=== PATIENT | female | born 1975 | race Caucasian/White ===

== ENCOUNTER 2021-06-06 16:37 | Emergency (ER) | payer OTHER ==
[~2021-06-06] VITALS: Ht 172.7 cm; Wt 130.0 kg
[~2021-06-06 16:37] MED LIST: CHOL500045 PO; LEVO112T49 PO; METF500T16 PO; OMEG300C PO; OMEP20TA63 PO
[2021-06-06] MEDS ORDERED: HYDROmorphone 2 MG/ML VIAL ONE (17:05)
[2021-06-06] MEDS ORDERED: HYDROmorphone 2 MG/ML VIAL IVP ONE ×2 (17:15→17:45)
[2021-06-06] MEDS ORDERED: DIPH,PERTUSS(ACELL),TET VAC/PF 0.5 ML SYRINGE. VAX IM ONE (17:15)
[2021-06-06] MEDS ORDERED: BACITRACIN TOPICAL OINT PACKET. TP ONE (17:15)
--- NOTE | 2021-06-06 17:32 | RAD ---
XR EXAM OF ANKLE_LEFT 3V History: Fall, deformity Comparison: None. Technique: 3 views of the left ankle Findings: Osseous mineralization is normal. There is an acute oblique fracture of the distal femoral metaphysis extending to just above the level of the tibiotalar joint with posterior displacement and shortening of the fracture fragment. The ankle mortise is widened to approximately 1.3 cm medially. The talar d ome is intact. Prominent soft tissue swelling about the ankle. Impression: 1. Oblique fracture distal fibular metaphysis and associated syndesmotic injury of the ankle with wi dening of the medial clear space to 1.3 cm. Electronically signed by: Soham Lim MD (06/06/2021 5:29 PM) [id number]
--- NOTE | 2021-06-06 17:39 | PHYS DOC ---
Past Medical History Past Surgical History: , Hysterectomy General Adult EDM: Chief Complaint: ANKLE PROBLEM HPI: HPI: Patient is a 46 year old female presents emergency department reporting approximately an hour prior to arrival stumbled down the last 3 steps at home and experienced a sudden onset of right ankle pain. Patient was brought to the emergency room by EMS with field splint in place. Patient denies any loss of sensation to her left lower extremity. Reports a past medical history of Fifi's hypothyroidism in which she takes levothyroxine for. Patient reports a allergy to Bactrim. Reports last tetanus immunization was greater than 5 years ago. Denies any other physical complaints or physical concerns. Patient states she did not hurt any other part of her body, did not hit her head. Review of Systems: Review of Systems: 14 body systems of review of systems have been reviewed. See HPI for pertinent positives and negative responses, otherwise all other systems are negative, nonpertinent or noncontributory. Constitutional: Negative except as outlined in HPI above. Skin: Negative except as outlined in HPI above. Eyes: Negative except as outlined in HPI above. HENT: Negative except as outlined in HPI above. Respiratory: Negative except as outlined in HPI above. Cardiovascular: Negative except as outlined in HPI above. GI: Negative except as outlined in HPI above. : Negative except as outlined in HPI above. Musculoskeletal: Negative except as outlined in HPI above. Integument: Negative except as outlined in HPI above. Neurologic: Negative except as outlined in HPI above. Endocrine: Negative except as outlined in HPI above. Lymphatic: Negative except as outlined in HPI above. Psychiatric: Negative except as outlined in HPI above. Heart Score: C/O Chest Pain: No Risk Factors: Risk Factors: DM, Current or recent (<one month) smoker, HTN, HLP, family history of CAD, obesity. Risk Scores: Score 0 - 3: 2.5% MACE over next 6 weeks - Discharge Home Score 4 - 6: 20.3% MACE over next 6 weeks - Admit for Clinical Observation Score 7 - 10: 72.7% MACE over next 6 weeks - Early Invasive Strategies Current Medications: Current Medications Medications (Trade) Dose Ordered Sig/Janey Start Time Stop Time Status Last Admin Dose Admin Bacitracin (Bacitracin Zinc Oint Pkt) 1 pkt 1X ONCE 06/06/21 17:15 06/06/21 17:16 DC Diphtheria/ Tetanus/Acell Pertussis (ADACEL TDap SYRINGE) 0.5 ml ONCE ONCE 06/06/21 17:15 06/06/21 17:16 DC Hydromorphone HCl (Dilaudid) 2 mg 1X ONCE 06/06/21 17:45 06/06/21 17:46 Allergies: Allergies: Allergies Coded Allergies Type Severity Reaction Last Updated Verified sulfamethoxazole Allergy Severe 08/17/16 Yes trimethoprim Allergy Severe 08/17/16 Yes Physical Exam: PE: Constitutional: Well developed, well nourished, no acute distress, non-toxic appearance. 46-year-old female in no acute distress, has field splint in place from EMS left lower extremity ankle. HENT: Normocephalic, atraumatic. Eyes: Conjunctiva normal, no discharge. Neck: Normal range of motion, no stridor. Cardiovascular: No cyanosis appreciated, distal cap refill less than 2 seconds. Lungs & Thorax: Patient is in no respiratory distress, no audible adventitious lung sounds appreciated. Abdomen: Nontender, no abnormalities noted. Skin: Warm, dry, no erythema, no rash. Back: No tenderness, no deformities. Extremities: No tenderness, no cyanosis, no clubbing, ROM intact, no edema. Except for left lower extremity, swelling anterior aspect foot, 2+ pedal pulse, distal cap refill less than 2 seconds, satisfactory movement of toes, limited range of motion of the ankle related to splint placement, deformity appreciated, mild ecchymosis/bruising to anterior lateral ankle. No loss of sensation. Abrasions to toes, no active bleeding, no infectious process appreciated. Neurologic: Alert and oriented X 3, normal motor function, normal sensory function, no focal deficits noted. Psychologic: Affect normal, judgement normal, mood normal. Current Patient Data: Vital Signs: Vital Signs Date Time Temp Pulse Resp B/P (MAP) Pulse Ox O2 Delivery O2 Flow Rate FiO2 06/06/21 17:08 18 99 Room Air 06/06/21 16:40 98.2 86 202/90 (99) 98.2 EKG: EKG: [] Radiology/Procedures: Radiology/Procedures: PATIENT: SONIYA BOND ACCOUNT: [id number] : 1975 LOCATION: ER AGE: 46 SEX: F EXAM STATUS: PRE ER ORD. PHYSICIAN: SULEMAN NEGRO APRN REASON: Fall, deformity, pain PROCEDURE: ANKLE LEFT 3V XR EXAM OF ANKLE_LEFT 3V History: Fall, deformity Comparison: None. Technique: 3 views of the left ankle Findings: Osseous mineralization is normal. There is an acute oblique fracture of the distal femoral metaphysis extending to just above the level of the tibiotalar joint with posterior displacement and shortening of the fracture fragment. The ankle mortise is widened to approximately 1.3 cm medially. The talar dome is intact. Prominent soft tissue swelling about the ankle. Impression: 1. Oblique fracture distal fibular metaphysis and associated syndesmotic injury of the ankle with widening of the medial clear space to 1.3 cm. PROCEDURE: CT LOWER EXTREMITY WO LEFT CT of the left lower extremity without contrast and 3-D reconstruction HISTORY: Ankle fracture Axial helical images were obtained from the mid leg through the foot and reconstruction was performed with separate imaging workstation including 3-D bony surface rendering. FINDINGS: There is an oblique fracture through the lateral malleolus at and above the level of the plafond and with mild posterior displacement and distraction and mild lateral displacement. There is lateral subluxation of the talus from the tibia with widening of the medial mortise. There is straightening versus partial tear of the lateral collateral ligaments and the medial collateral ligaments. The extensor tendons appear normal. IMPRESSION: Acute fracture of the lateral malleolus and subluxation with traumatic widening of the medial mortise. End impression PQRS Compliance Statement: One or more of the following individualized dose reduction techniques were utilized for this examination: 1. Automated exposure control 2. Adjustment of the mA and/or kV according to patient size 3. Use of iterative reconstruction technique Electronically signed by: Augustine Vidal III, MD (06/06/2021 6:47 PM) [facility] Course & Med Decision Making: Course & Med Decision Making Pertinent Labs and Imaging studies reviewed. (See chart for details) 46-year-old female, vital signs reviewed, presents to the emergency department concerning left ankle pain and deformity after a stumbled on the last 3 steps prior to arrival to the emergency department. Physical examination concerning for acute fracture, x-ray ordered. X-ray concerning for trimalleolar fracture versus fracture dislocation, discussed patient case with ED attending physician Dr. Martini recommended splinting patient to help reduce subluxation/dislocation, CT imaging with reconstruction of ankle bone for reevaluation prior to calling orthopedic surgery. Procedure note: Indication: Fracture left ankle Dr. Martini with assistance by myself, and ED nursing staff reduction and splinting with short leg posterior splint with ankle stirrup using Sof-Rol, stockinette, OCL, Raul wraps. Patient tolerated well, patient remained neurovascular intact with distal cap refill less than [address] of left ankle concerning for fracture with subluxation, called and discussed patient case and ED work-up along with x-ray and CT reports with configuration management specialist Dr. Benavides who did not recommend any further manipulation of left ankle, recommends patient ice, elevate, use crutches, nonweightbearing, call his office Wednesday for an appointment later this week for surgical repair. Discussed configuration management specialist recommendations with patient, patient gave verbal understanding of home care, crutch use, ice and elevation, splint care, prescription medications, side effects, patient and patient's are amendable to ED discharge planning. Patient's splinted left lower extremity/ankle remains neurovascular intact with cap refill less than 2 seconds at time of discharge. Discussed with the patient all findings and diagnostic testing as well as the need to follow-up with their primary care provider for further evaluation and treatment or return to the ED if any new or worsening symptoms. Strict return precautions were also discussed at length, the patient voiced understanding and agreement with the discharge planning. The patient was nontoxic in appearance, in no apparent distress, and hemodynamically stable at the time of disposition. Dragon Disclaimer: DragBroadClip Disclaimer: This electronic medical record was generated, in whole or in part, using a voice recognition dictation system. Departure Departure Impression: Primary Impression: Ankle fracture, left Qualified Codes: S82.892A - Other fracture of left lower leg, initial encounter for closed fracture Disposition: HOME / SELF CARE / HOMELESS Condition: GOOD Referrals: CAROLINA CODY MD (PCP) SULEMAN BENAVIDES DO Patient Instructions: Ankle Fracture Additional Instructions: You were seen today after a fall, you have fractured your left ankle, a splint was placed, please do not remove the splint, please place ice over the ankle 30 minutes on and 30 minutes off while awake. These elevate above the level of your heart to help prevent swelling and pain. I am prescribing you pain medication to take, please take as prescribed, do not drive or operate heavy machinery while taking narcotic pain medications. Please use crutches as directed for ambulation. Please follow-up with the configuration management specialist Dr. Benavides this coming week, please call this Wednesday for an appointment. I have spoken to the configuration management specialist and he is aware of your case. Please return to the emergency department for worsening symptoms or other concerns. Thank you for visiting our Emergency Department. It was a pleasure taking care of you today in the emergency department and we appreciate you trusting us with your care. If any additional problems come up don't hesitate to return to visit us. Please follow up with your primary care provider so they can plan additional care if needed and know about the problem that you had. If symptoms worsen come back to the Emergency Department. Any concerning symptoms that start such as chest pain, shortness of air, weakness or numbness on one side of the body, running high fevers or any other concerning symptoms return to the ER. EMERGENCY DEPARTMENT GENERAL DISCHARGE INSTRUCTIONS Thank you for coming to [facility] Emergency Department (ED) today and trusting us with you care. We trust that you had a positive experience in our Emergency Department. If you wish to speak to the department management, you may call the Director at [phone]. YOUR FOLLOW UP INSTRUCTIONS ARE FOLLOWS: 1. Do you have a private Doctor? If you do not have a private doctor, please ask for a resource list of physicians or clinics that may be able to assist you with foll ow up care. 2. The Emergency Physicain has interpreted your x-rays. The X-Ray specialist will also review them. If there is a change in the findings, you will be notified in 48 hours when at all possible. 3. A lab test or culture has been done, your results will be reviewed and you will be notified if you need a change in treatment. ADDITIONAL INSTRUCTIONS AND INFORMATION: 1. Your care today has been supervised by a physician who is specially trained in emergency care. Many problems require more than one evaluation for a complete diagnosis and treatment. We recommend that you schedule your follow up appointment as re commended to ensure complete treatment of you illness or injury. If you are unable to obtain follow up care and continue to have a problem, or if your condition worsens, we recommend that you return to the ED. 2. We are not able to safely determine your condition over the phone nor are we able to give sound medical advice over the phone. For these safety reasons, if you call for medical advice we will ask you to come to the ED for further evaluation. 3. If you have any questions regarding these discharge instructions please call the ED at [phone]. SAFETY INFORMATION: In the interest of safety, wellness, and injury prevention; we encourage you to wear your sealbelt, if you smoke; quite smoking, and we encourage family to use a protective helmet for bicycling and other sporting events that present an increased risk for head injury. IF YOUR SYMPTOMS WORSEN OR NEW SYMPTOMS DEVELOP, OR YOU HAVE CONCERNS ABOUT YOUR CONDITION; OR IF YOUR CONDITION WORSENS WHILE YOU ARE WAITING FOR YOUR FOLLOW UP APPOINTMENT; EITHER CONTACT YOUR PRIMARY CARE DOCTOR, THE PHYSICIAN WHOSE NAME AND NUMBER YOU WERE GIVEN, OR RETURN TO THE ED IMMEDIATELY. Scripts Hydrocodone Bit/Acetaminophen (HYDROCODONE-APAP 7.5-325 ) 1 Tab Tablet 1 TAB PO PRN Q6HRS PRN for PAIN, #30 TAB 0 Refills Prov: SULEMAN NEGRO APRN 06/06/21 Ibuprofen (IBUPROFEN) 600 Mg Tablet 600 MG PO PRN Q6HRS PRN for INFLAMMATION, #30 TAB 0 Refills Prov: SULEMAN NEGRO APRN 06/06/21 SULEMAN NEGRO APRN Jun 06, 2021 17:39
--- NOTE | 2021-06-06 18:49 | RAD ---
CT of the left lower extremity without contrast and 3-D reconstruction HISTORY: Ankle fracture Axial helical images were obtained from the mid leg through the foot and reconstruction was performed with separate imaging workstation including 3-D bony surface rendering. FINDINGS: There is an oblique fracture through the lateral malleolus at and above the level of the plafond and with mild posterior displacement and distraction and mild lateral displacement. There is lateral subl uxation of the talus from the tibia with widening of the medial mortise. There is straightening versu s partial tear of the lateral collateral ligaments and the medial collateral ligaments. The extensor tendons appear normal. IMPRESSION: Acute fracture of the lateral malleolus and subluxation with traumatic widening of the medial mortise . End impression PQRS Compliance Statement: One or more of the following individualized dose reduction techniques were utilized for this examinat ion: 1. Automated exposure control 2. Adjustment of the mA and/or kV according to patient size 3. Use of iterative reconstruction technique Electronically signed by: Augustine Vidal III, MD (06/06/2021 6:47 PM) [facility]
[2021-06-06] MEDS ORDERED: ONDANSETRON PF 4 MG/2 ML VIAL. IVP ONE (19:00)
[2021-06-06] MEDS ORDERED: IV NORMAL SALINE 1000ML BAG 1,000 ML IV ONE (19:45)
[2021-06-06] MEDS ORDERED: HYDR-2765 PO (19:53)
[2021-06-06] MEDS ORDERED: IBUP-1007 PO (19:53)
[2021-06-06] MEDS ORDERED: METOCLOPRAMIDE HCL 10 MG/2 ML VIAL. IVP ONE (20:15)
[2021-06-06 21:50] VITALS: BP 156/71
== END 2021-06-06 21:50 | disposition home or self-care (01) ==
LOC: ER 16:37
DX: S82.892A Other fracture of left lower leg, initial encounter for closed fracture (principal); Z88.1 Allergy status to other antibiotic agents; Z88.2 Allergy status to sulfonamides; W01.0XXA Fall on same level from slipping, tripping and stumbling without subsequent striking against object, initial encounter; Y93.89 Activity, other specified; Y92.89 Other specified places as the place of occurrence of the external cause; Y99.8 Other external cause status
CPT/HCPCS: 73610; 73700; 90471; 90715; 96361; 96374; 96375; 96376; 99285; J1170; J2405; J2765; J7030